=== PATIENT | male | born 2000 | race Caucasian/White ===

== ENCOUNTER 2021-03-12 18:10 | Emergency (ER) | payer OTHER ==
[~2021-03-12] VITALS: Ht 190.5 cm; Wt 72.6 kg
== END 2021-03-12 19:48 | disposition home or self-care (01) ==
LOC: M.ERS 18:10
DX: S01.111A Laceration without foreign body of right eyelid and periocular area, initial encounter (principal); Z91.041 Radiographic dye allergy status; Z88.0 Allergy status to penicillin; Z88.2 Allergy status to sulfonamides; Z88.8 Allergy status to other drugs, medicaments and biological substances; W50.0XXA Accidental hit or strike by another person, initial encounter; Y93.67 Activity, basketball; Y92.310 Basketball court as the place of occurrence of the external cause; Y99.8 Other external cause status